=== PATIENT | female | born 1970 | race Caucasian/White ===

== ENCOUNTER 2017-12-15 05:15 | Day surgery (SDC) | payer OTHER ==
[~2017-12-15 05:15] MED LIST: ZYRTEC; ZYRTEC10 MG PO
[2017-12-15] MEDS ORDERED: CODE1TAB37 PO (12:19)
[2017-12-15] MEDS ORDERED: DOXYCYCLINE HY100 MG PO (12:19)
== END 2017-12-15 15:00 | disposition home or self-care (01) ==
LOC: CIR.AMB 05:15
DX: D25.0 Submucous leiomyoma of uterus (principal); N84.0 Polyp of corpus uteri; N92.5 Other specified irregular menstruation